=== PATIENT | male | born 1990 ===

== ENCOUNTER 2020-11-08 19:16 | Emergency (ER) | payer OTHER ==
[2020-11-08] MEDS ORDERED: CEFTRIAXONE/SWI 1gm 1 GM/10 ML SYR ONE (19:41)
[2020-11-08] MEDS ORDERED: AZITHROMYCIN 250 MG TAB ONE ×2 (19:41→21:21)
[2020-11-08] MEDS ORDERED: CLINDAMYCIN 600MG/D5W 600 MG/50 ML BAG IV ONE (19:41)
[2020-11-08 20:13] LABS: Absolute Lymphocytes (CBC) 2.2 K/uL (0.7-4.9); Basophils % 0.6 % (0-1.3); Hematocrit 42.7 % (39.6-49.0); Lymphocytes % 21.4 % (15.3-44.8); MPV 9.5 fL (7.6-11.3); RBC Red Blood Cell Count 4.53 M/uL (4.33-5.43)
[2020-11-08 20:32] LABS: Albumin 4.1 g/dL (3.4-5.0); Bilirubin Total 0.6 mg/dL (0.2-1.0); Protein, Total 8.6 g/dL (6.4-8.2)
--- NOTE | 2020-11-08 21:17 | RAD REPORT ---
EXAM DESCRIPTION: CT - Neck Angio - 11/08/2020 8:56 pm CLINICAL HISTORY: attempted hanging, neck injury TECHNIQUE: During dynamic enhancement using nonionic IV contrast, axial 2 mm thick images of the nec k were obtained. Sagittal and axial reconstruction images were generated using MIP technique and revi ewed. All CT scans are performed using dose optimization technique as appropriate and may include automated exposure control or mA/KV adjustment according to patient size. COMPARISON: None FINDINGS: No aneurysm or vascular malformation identified. No carotid or vertebral dissection. No aortic arch or great vessel origin abnormality seen. Vertebral artery origins unremarkable as well . The bilateral carotid and vertebral artery vasculature enhance normally. Soft tissues of the neck s how no mass, hematoma or other emergent finding. No abnormal lymphadenopathy. No hyoid bone injury or other acute bone finding. IMPRESSION: Negative CT angio neck examination.
--- NOTE | 2020-11-08 21:43 | ER ---
Nurse's Notes [facility] Name: Boo Hyde Age: 30 yrs Sex: Male : 1990 Arrival Date: 11/08/2020 Time: 19:10 Bed 4 Private MD: Diagnosis: Suicide attempt Presentation: 11/08 19:10 Chief complaint: EMS states: attempted suicide by hanging with sheet in his residential aa5 cell, no ligature wilkes noted at this time, pt was found in cell and negative LOC was reported by guards. Pt reports he tried to kill himself because he's had left eye redness and redness to scrotum for a week and "nobody will check on me, not even the nurses will go and check on me". EMS reports pt was found in his cell A\\T\\O X 4 upon scene arrival. 19:10 Coronavirus screen: At this time, the client does not indicate any symptoms associated aa5 with coronavirus-19. Ebola Screen: Patient negative for fever greater than or equal to 101.5 degrees Fahrenheit, and additional compatible Ebola Virus Disease symptoms. Initial Sepsis Screen: Does the patient meet any 2 criteria? No. Patient's initial sepsis screen is negative. Does the patient have a suspected source of infection? No. Patient's initial sepsis screen is negative. Risk Assessment: Do you want to hurt yourself or someone else? Patient reports desire/thoughts of hurting themselves or someone else. Provider notified. Onset of symptoms was November 08, 2020. 19:10 Acuity: ROBERT 2 aa5 19:10 Method Of Arrival: EMS: [facility] aa5 19:10 Care prior to arrival: Glucose check: 120. aa5 Historical: - Allergies: 19:10 No Known Allergies; aa5 - PMHx: 19:10 None; aa5 - Immunization history:: Adult Immunizations up to date. - Social history:: Patient/guardian denies using alcohol, street drugs, The patient lives with family, Smoking status: unknown. - Family history:: not pertinent. Screenin:06 Abuse screen: Denies threats or abuse. Nutritional screening: No deficits noted. ea Tuberculosis screening: No symptoms or risk factors identified. Fall Risk IV access (20 points). Assessment: 19:30 General: Appears in no apparent distress. Behavior is appropriate for age. Pain: ea Complains of pain in pelvis. Neuro: Level of Consciousness is awake, alert, obeys commands, Oriented to person, place, time. Respiratory: Airway is patent Respiratory effort is even, unlabored, Respiratory pattern is regular, symmetrical. Derm: Skin is pink, warm \\T\\ dry. 21:18 Reassessment: Patient and/or family updated on plan of care and expected duration. Pain ea level reassessed. Patient is alert, oriented x 3, equal unlabored respirations, skin warm/dry/pink. Vital Signs: 19:10 BP 113 / 76; Pulse 85; Resp 16 S; Temp 99.3(O); Pulse Ox 100% on R/A; aa5 19:18 BP 113 / 76; Pulse 82; Resp 16; Pulse Ox 99% on R/A; sg ED Course: 19:10 Patient arrived in ED. aa5 19:10 Arm band placed on. aa5 19:17 Vee Jason MD is Attending Physician. [facility] 19:18 Brian Ontiveros, HOLLAND is Primary Nurse. sg 19:20 Triage completed. aa5 20:03 Inserted saline lock: 20 gauge in left forearm, using aseptic technique. Blood rr5 collected. 20:06 Patient has correct armband on for positive identification. Bed in low position. Call ea light in reach. Side rails up X2. 20:57 CT Neck Angio In Process Unspecified. EDMS 21:53 No provider procedures requiring assistance completed. ea Administered Medications: 19:40 Drug: AZITHromycin 1000 mg Route: PO; sg 21:53 Follow up: Response: No adverse reaction ea 20:03 Drug: Rocephin (cefTRIAXone) 1 grams Route: IV; Rate: calculated rate; Site: left rr5 forearm; 21:11 Drug: Clindamycin 600 mg Route: IVPB; Infused Over: 30 mins; Site: left antecubital; sg Outcome: 21:43 Discharge ordered by . ma2 22:18 Discharged to residential accompanied by residential guards ea 22:18 Condition: stable 22:18 Discharge instructions given to patient, Instructed on discharge instructions, medication usage, Demonstrated understanding of instructions, Prescriptions given X 3. 22:19 Patient left the ED. sg Signatures: Dispatcher [employer] EDMS Brian Ontiveros RN RN Dalila Rangel RN RN aa5 Ada Mayers RN RN Vee Hilario MD MD ma2 Aditya Lugo RN RN rr5 Corrections: (The following items were deleted from the chart) 19:21 19:10 Chief complaint: EMS states: attempted suicide by hanging with sheet in his aa5 residential cell, no ligature wilkes noted at this time, pt was found in cell and negative LOC was reported by guards. Pt reports he tried to kill himself because he's had left eye redness and redness to scrotum for a week and "nobody will check on me, not even the nurses will go and check on me". aa5
--- NOTE | 2020-11-08 21:43 | EDPHYS ---
Physician Documentation [facility] Name: Boo Hyde Age: 30 yrs Sex: Male : 1990 Arrival Date: 11/08/2020 Time: 19:10 Bed 4 Private MD: ED Physician Vee Jason HPI: 11/08 21:36 This 30 yrs old Male presents to ER via EMS with complaints of Attempted hanging, Eye ma2 Problem, Scrotal Pain, Acute Onset. 21:36 Onset: The symptoms/episode began/occurred suddenly, 2 hour(s) ago. Associated signs ma2 and symptoms: Pertinent negatives: dizziness, fever, headache. Severity of symptoms: At their worst the symptoms were moderate in the emergency department the symptoms are unchanged. The patient has not experienced similar symptoms in the past. patient is inmate in [facility], he attempted hanging and that was stopped by halfway personell he has been depressed , he also complains of skin rash around the penis and eye discharge . Historical: - Allergies: 19:10 No Known Allergies; aa5 - PMHx: 19:10 None; aa5 - Immunization history:: Adult Immunizations up to date. - Social history:: Patient/guardian denies using alcohol, street drugs, The patient lives with family, Smoking status: unknown. - Family history:: not pertinent. ROS: 21:36 Constitutional: Negative for fever, chills, and weight loss. ma2 21:36 All other systems are negative. Exam: 21:36 Visual Acuity: Visual acuity is within normal limits. ma2 21:36 Constitutional: This is a well developed, well nourished patient who is awake, alert, and in no acute distress. Head/Face: Normocephalic, atraumatic. Eyes: left eye conjuctiva is red with crusted discharge, however Pupils equal round and reactive to light, extra-ocular motions intact. Lids and lashes normal. Conjunctiva and sclera are non-icteric and not injected. Cornea within normal limits. Periorbital areas with no swelling, redness, or edema. ENT: Nares patent. No nasal discharge, no septal abnormalities noted. Tympanic membranes are normal and external auditory canals are clear. Oropharynx with no redness, swelling, or masses, exudates, or evidence of obstruction, uvula midline. Mucous membranes moist. Neck: Trachea midline, no thyromegaly or masses palpated, and no cervical lymphadenopathy. Supple, full range of motion without nuchal rigidity, or vertebral point tenderness. No Meningismus. Chest/axilla: Normal chest wall appearance and motion. Nontender with no deformity. No lesions are appreciated. Cardiovascular: Regular rate and rhythm with a normal S1 and S2. No gallops, murmurs, or rubs. Normal PMI, no JVD. No pulse deficits. Respiratory: Lungs have equal breath sounds bilaterally, clear to auscultation and percussion. No rales, rhonchi or wheezes noted. No increased work of breathing, no retractions or nasal flaring. Abdomen/GI: Soft, non-tender, with normal bowel sounds. No distension or tympany. No guarding or rebound. No evidence of tenderness throughout. Back: No spinal tenderness. No costovertebral tenderness. Full range of motion. Male : Normal genitalia with no discharge or lesions. Skin: there is redness and discharge around the penus and scrotum, testicles exam is wnl, rash is cellulitis and crusting, otherwise skin is Warm, dry with normal turgor. Normal color with no rashes, no lesions, and no evidence of cellulitis. MS/ Extremity: Pulses equal, no cyanosis. Neurovascular intact. Full, normal range of motion. Neuro: Awake and alert, GCS 15, oriented to person, place, time, and situation. Cranial nerves II-XII grossly intact. Motor strength 5/5 in all extremities. Sensory grossly intact. Cerebellar exam normal. Normal gait. Vital Signs: 19:10 BP 113 / 76; Pulse 85; Resp 16 S; Temp 99.3(O); Pulse Ox 100% on R/A; aa5 19:18 BP 113 / 76; Pulse 82; Resp 16; Pulse Ox 99% on R/A; sg MDM: 19:17 Patient medically screened. ma2 21:36 Differential diagnosis: Corneal abrasion of Corneal ulcer of attempted suicide by ma2 hanging, major depression, suicidal attempt, STD vs cellulitis in addition to conjunctivitis, they have a psychiatrist at the halfway for further management of SI and depression. Data reviewed: vital signs, nurses notes. Counseling: I had a detailed discussion with the patient and/or guardian regarding: the historical points, exam findings, and any diagnostic results supporting the discharge/admit diagnosis, the presence of at least one elevated blood pressure reading (>120/80) during this emergency department visit, the need for outpatient follow up. Response to treatment: the patient's symptoms have markedly improved after treatment. 11/08 19:20 Order name: CBC with Diff; Complete Time: 21:36 ma2 11/08 19:20 Order name: CMP; Complete Time: 21:36 ma2 11/08 19:20 Order name: CT Neck Angio; Complete Time: 21:36 ma2 11/08 19:20 Order name: Bladder Scanner; Complete Time: 19:41 ma2 Administered Medications: 19:40 Drug: AZITHromycin 1000 mg Route: PO; sg 21:53 Follow up: Response: No adverse reaction ea 20:03 Drug: Rocephin (cefTRIAXone) 1 grams Route: IV; Rate: calculated rate; Site: left rr5 forearm; 21:11 Drug: Clindamycin 600 mg Route: IVPB; Infused Over: 30 mins; Site: left antecubital; sg Disposition: 11/08/20 21:43 Discharged to Home. Impression: Suicide attempt. - Condition is Stable. - Discharge Instructions: Suicidal Feelings: How to Help Yourself. - Prescriptions for Clindamycin HCl 300 mg Oral Capsule - take 1 capsule by ORAL route every 6 hours for 10 days; 40 capsule. Doxycycline Hyclate 100 mg Oral Tablet - take 1 tablet by ORAL route every 12 hours; 20 tablet. Gentamicin 0.3 % (3 mg/gram) Ophthalmic Ointment - apply 0.5 inch by OPHTHALMIC route every 8 hours; 1 tube. - Medication Reconciliation Form, Thank You Letter, Antibiotic Education, Prescription Opioid Use form. - Follow up: Private Physician; When: Today; Reason: Continuance of care. - Notes: see a psychiatrist at the halfway Signatures: Dispatcher [employer] EDMS Brian Ontiveros RN RN sg Dalila Shannon RN RN aa5 Ada Mayers RN RN ea Alzahri, Mohammad, MD MD ma2 Aditya Lugo RN RN rr5 Corrections: (The following items were deleted from the chart) 22:19 21:43 11/08/2020 21:43 Discharged to Home. Impression: Suicide attempt. Condition is sg Stable. Prescriptions for Clindamycin HCl 300 mg Oral Capsule - take 1 capsule by ORAL route every 6 hours for 10 days; 40 capsule, Doxycycline Hyclate 100 mg Oral Tablet - take 1 tablet by ORAL route every 12 hours; 20 tablet, Gentamicin 0.3 % (3 mg/gram) Ophthalmic Ointment - apply 0.5 inch by OPHTHALMIC route every 8 hours; 1 tube. and Forms are Medication Reconciliation Form, Thank You Letter, Antibiotic Education, Prescription Opioid Use. Follow up: Private Physician; When: Today; Reason: Continuance of care. ma2
[2020-11-09 01:01] VITALS: BP 113/76; O2SAT 99
== END 2020-11-08 22:19 | disposition home or self-care (01) ==
LOC: ER 19:16
DX: T14.91XA Suicide attempt, initial encounter (principal); X83.8XXA Intentional self-harm by other specified means, initial encounter; Y93.9 Activity, unspecified; Y92.143 Cell of prison as the place of occurrence of the external cause; R21 Rash and other nonspecific skin eruption; H57.89 Other specified disorders of eye and adnexa
CPT/HCPCS: 85025; 36415; 80053; 70498; 99284; Q9967; J0696